=== PATIENT | female | born 1960 | race Caucasian/White ===

== ENCOUNTER 2016-05-29 17:14 | Emergency (ER) | payer OTHER ==
[2016-05-29 17:53] VITALS: BP 165/90; PULSE 76; RESP 16; TEMP 97.3; O2SAT 98
--- NOTE | 2016-05-29 18:18 | DX ---
Left Knee, Four Views Indication: Fall. Pain.. Technique: AP, obliques and lateral views. Comparison: None Findings: Extensive soft tissue swelling is anterior to the tibial tuberosity and patellar tendon. Th e normally mineralized bones are anatomically aligned. No acute fracture. Joint spaces are well prese rved. Tiny spurs emanate off the superior and inferior pole of the patella. Trace effusion. Impression: 1. No acute fracture. 2. Extensive soft tissue swelling anterior to the tibial tuberosity and patellar tendon.
--- NOTE | 2016-05-29 18:32 | UCPHY ---
H & P Patient Type: Established Smoking Status: Never smoked Time Seen by Provider: 05/29/16 17:56 HPI/ROS: HPI: 55-year-old female presents to urgent care with chief concern left upper anterior dozier pain, swelling, ecchymosis. Occurred at 12:15 p.m. today when she slipped and fell on the ice, landing on her left knee. Denies weakness, numbness, or tingling of her extremity. Denies left hip, left ankle or left foot pain. Did not strike her head or incur other injury at time of incident. No neck or back pain. She is on Effient. ROS:10 point review of systems is negative other than as stated in HPI (Erica Alvarez) Past Medical/Surgical History: MT, diabetes type 2 (Erica Alvarez) Social History: RN (Erica Alvarez) Physical Exam: Vital signs stable, reviewed by me General: Awake, alert, calm, cooperative. No acute distress. Head: Normalocephalic. Atraumatic. EENT: PERRLA. EOMI. Neck: Supple, nontender. No midline tenderness, full ROM. Respiratory: Breathing unlabored. CV: Chest nontender, atraumatic. Distal pulses 2+. Brisk cap refill all extremities. GI: Deferred Neuro: Alert. Oriented x 3. Sensation intact all extremities. Skin: Skin warm, dry, intact. No ecchymosis, abrasions, or lacerations. Extremities: No discomfort to palpation of the left hip, knee, ankle or foot. Full ROM. Left upper dozier with significant ecchymosis and swelling. Pain to palpation. DP/PT both 2+. Brisk cap refill, sensation intact. (Erica Alvarez) Constitutional: Initial Vital Signs Temperature (C) 36.3 C 05/29/16 17:46 Heart Rate 76 05/29/16 17:46 Respiratory Rate 16 05/29/16 17:46 Blood Pressure 165/90 H 05/29/16 17:46 O2 Sat (%) 98 05/29/16 17:46 O2 Delivery Mode Room Air Allergies/Adverse Reactions: No Known Allergies Allergy (Verified 05/29/16 17:51) Home Medications: Medication Instructions Recorded Insulin Lispro [humALOG LISPRO 100 5 - 15 unit SC TIDMEAL 01/11/16 units/ml (*)] Aspirin [Aspirin 81mg (*)] 81 mg PO HS 06/03/15 Atorvastatin Calcium [Lipitor 20 20 mg PO HS 06/03/15 mg (*)] Insulin Glargine,Hum.rec.anlog 42 unit SQ DAILY 06/03/15 [Marbella Abadostar] Prasugrel HCl [Effient 10mg (*)] 10 mg PO HS 06/03/15 Medical Decision Making - Diagnostics Imaging: Left Knee, Four Views Indication: Fall. Pain.. Technique: AP, obliques and lateral views. Comparison: None Findings: Extensive soft tissue swelling is anterior to the tibial tuberosity and patellar tendon. The normally mineralized bones are anatomically aligned. No acute fracture. Joint spaces are well preserved. Tiny spurs emanate off the superior and inferior pole of the patella. Trace effusion. Impression: 1. No acute fracture. 2. Extensive soft tissue swelling anterior to the tibial tuberosity and patellar tendon. Dictated By: Bernard Live MD (Erica Alvarez) ED Course/Re-evaluation: CT negative for fracture. Patient has contusion/hematoma the upper left dozier. Placed in R[place]ad wrap that was hers from home. Neurovascular status intact after application. Instructed in use of crutches. Given a CD of x-ray to follow up with primary care. She has been counseled regarding such. (Erica Alvarez) Other Provider: The patient was evaluated and managed by the nurse practitioner, Erica Alvarez. t. My co-signature indicates that I have reviewed this chart and I agree with the findings and plan of care as documented. I am the secondary supervising physician. (Jade Ross) Departure - Departure Disposition: Home, Routine, Self-Care Clinical Impression: Contusion, Hematoma Condition: Good Instructions: Contusion in Adults (ED), Hematoma (ED) Additional Instructions: Plan: Tylenol 1000 mg every 8 hours ice every 1-2 hours for 20 minutes for the the next 2-3 days Wear Prasad wrap while up and about Use crutches for ambulation should your symptoms and pain persist so that you do not limp Follow up with Viviana Shook, primary care, on Thursday for recheck without fail For worsening symptoms including severe pain, numbness or tingling, cool dusky extremity go to emergency room X-ray negative for evidence of fracture, shows soft tissue swelling only Referrals: Viviana Shook MD [Primary Care Provider] - As per Instructions - PQRS PQRS Measurement: Not applicable (Erica Alvarez)
== END 2016-05-29 18:48 | disposition home or self-care (01) ==
LOC: CED 17:14
DX: S80.12XA Contusion of left lower leg, initial encounter (principal); M79.89 Other specified soft tissue disorders; W00.0XXA Fall on same level due to ice and snow, initial encounter
CPT/HCPCS: 73564-PO; 99214-PO; G0463-PO

== ENCOUNTER → 2016-12-22 | Outpatient (CLI) | payer OTHER | LOC: FIMAGING 11:14 | PROVIDERS: ATTEND Internal Medicine | DX: Z12.31 Encounter for screening mammogram for malignant neoplasm of breast (principal); Z80.3 Family history of malignant neoplasm of breast | CPT/HCPCS: G0202 ==